=== PATIENT | female | born 1985 | race Caucasian/White ===

== ENCOUNTER → 2017-04-06 | Outpatient (CLI) | payer BC ==
[~2017-04-06] MED LIST: *morphine SULFATE 8 MG/ML PERIprocedure ONLY ONE; CETI10 PO; DO NOT ADM ANY ANTICOAGULANT DRUGS PRN; ESCI10TA PO; FAMO20TA2 PO; GABA100C4 PO; LORA1TAB12 PO; MORP1TAB24 PO; PRAD150C PO; PROPOFOL 200 MG/20 ML AMP IV ONE; ROBA500T PO
--- NOTE | 2017-04-06 12:49 | PD.PROCEDR ---
GI Procedure REFERRING PHYSICIAN Dr. Damon PROCEDURE PERFORMED EGD followed by a colonoscopy INDICATION FOR PROCEDURE Aissatou aphagia, gastroparesis, hematochezia PROCEDURE: The procedure, risks and benefits were discussed with Ms. Montano and informed consent was obtained. Anesthesia sedated her with Diprivan. She was placed in the left lateral decubitus position. EGD: The Pentax videoscope was introduced through the oropharynx and advanced to the second portion of the duodenum under direct visualization. Retroflexion was performed in the stomach. FINDINGS: Esophagus this was normal Stomach this was normal Duodenum this was normal Colonoscopy: The Pentax videoscope was introduced through the rectum and advanced to cecum where the ileocecal valve and appendiceal orifice were identified. Retroflexion was performed in the rectum. Colonic prep was good FINDINGS: Colonic withdrawal time greater than 6 minutes as the scope was slowly withdrawn colonic mucosa was carefully inspected this was noted to be unremarkable and within normal limits all the way through so as retroflexion and rectal examination ESTIMATED BLOOD LOSS: None SPECIMENS REMOVED: None COMPLICATIONS: None IMPRESSION: Normal EGD Normal colonoscopy PLAN: High-fiber diet Supportive care Clay Rai MD Apr 06, 2017 12:49
[2017-04-06 13:10] VITALS: BP 120/70; PULSE 58; RESP 14; TEMP 98.7; O2SAT 100
== END ==
LOC: HEND 09:02
PROVIDERS: ATTEND Internal Medicine Gastroenterology
DX: R13.0 Aphagia (principal); K31.84 Gastroparesis; K92.1 Melena
CPT/HCPCS: J2270

== ENCOUNTER 2017-05-03 12:22 | Emergency (ER) | payer BC ==
[~2017-05-03 12:22] MED LIST changes: -*morphine SULFATE 8 MG/ML PERIprocedure ONLY ONE; +BETH10 PO; +CIPR-9 PO; +DIFL100T PO; -DO NOT ADM ANY ANTICOAGULANT DRUGS PRN; -ESCI10TA PO; +ESCI20TA PO; -FAMO20TA2 PO; -GABA100C4 PO; +LYRI50CA PO; +PANT40TA3 PO; -PROPOFOL 200 MG/20 ML AMP IV ONE; +SENN1TAB PO; +SUCR1S PO
[2017-05-03] MEDS ORDERED: SODIUM CHLOR 0.9% 1000 ML INJ 1,000 ML IV ONE (13:10)
[2017-05-03] MEDS ORDERED: SODIUM CHLORIDE 0.9% FLUSH 10 ML FLUSH IVF PRN (13:15)
[2017-05-03 13:17] VITALS: BP 123/83; PULSE 66; RESP 17; TEMP 98; O2SAT 98
--- NOTE | 2017-05-03 13:41 | PD ---
HPI Chief Complaint: Neuro Symptoms/ Deficits Time Seen by Provider: 13:08 Travel History International Travel<30 days: No Contact w/Intl Traveler<30days: No Traveled to known affect area: No History of Present Illness HPI 32-year-old female came to the emergency room for increased somnolence. Patient says that she has been falling asleep in the middle of sentences while talking to somebody during the day. At night she has been waking up and mumbling things that do not make sense as per her boyfriend. This has been going on for past 3-4 nights. Currently when patient is talking to me she is answering questions appropriately but she talks with a slur. It almost seems like she has been on pain medications. Upon asking patient had to pull the medication box out of her purse which is a rather large 1 and she looked at her medications and told me she is on morphine, Robaxin, lorazepam and Lyrica. Out of all this the Lyrica has been started 2 weeks ago. Patient has history of chronic pain and hence on all these medications. Vital signs were stable. [facility] Past Medical History Narrative Medical List of her past medical, surgical, social and family history was reviewed from the nursing note. Arthritis: Yes (LEFT KNEE) Asthma: No Autoimmune Disease: No Blood Disorders: Yes (FACTOR 5 LEIDEN) Anxiety: Yes Depression: No Heart Rhythm Problems: No Cancer: Yes (CERVICAL CANCER WITH LEAP PROCEDURE) Cardiovascular Problems: Yes (RECURRENT BILATERAL LOWER EXT DVT) High Cholesterol: No Chemotherapy: No Chest Pain: No Congestive Heart Failure: No COPD: No Cerebrovascular Accident: No Diabetes: No Endocrine: No GERD: Yes Genitourinary: Yes (HX PERFORATED BLADDER) Hiatal Hernia: No Immune Disorder: No Kidney Stones: No Musculoskeletal: Yes (LEFT SIDE WEAKNESS) Neurologic: Yes (spinal verterbral column compression) Psychiatric: Yes Reproductive: No Respiratory: Yes Immunizations Current: Yes Migraines: No Radiation Therapy: No Renal Failure: No Seizures: No Sickle Cell Disease: No Sleep Apnea: Yes (POSSIBLE, NOT DIAGNOSED) Thyroid Disease: No Ulcer: No Dilation and Curettage (D&C): Yes Past Surgical History Abdominal Surgery: Yes (LAPAROSCOPY) AICD: No Arteriovenous Shunt: No Cardiac Surgery: No Ear Surgery: No Endocrine Surgery: No Eye Surgery: No Genitourinary Surgery: Yes (REMOVAL OF PLACENTA FROM BLADDER) Gynecologic Surgery: Yes (PLACENTA REMOVAL ) Insulin Pump: No Joint Replacement: No Oral Surgery: No Pacemaker: No Thoracic Surgery: No Other Surgery: Yes (LEAP/LAPAROSCOPY/HYSTEROSCOPY/LUMBAR PUNCTURE) Social History Alcohol Use: No Tobacco Use: No Substance Use: No Allergies-Medications (Allergen,Severity, Reaction): Coded Allergies: doxycycline (Unverified Allergy, Unknown, 05/03/17) Comments List of her allergies reviewed from the nursing note. Reported Meds & Prescriptions Reported Meds & Active Scripts Active Urecholine (Bethanechol Chloride) 10 Mg Tab 10 Mg PO Q8HR Senna Plus 8.6-50 mg (Sennosides-Docusate Sodium) 1 Tab Tab 1 Tab PO BID Sucralfate Liq (Sucralfate) 1 Gm/10 Ml Gabrielle 1 Gm PO ACHS 30 Days Pantoprazole (Pantoprazole Sodium) 40 Mg Tab 40 Mg PO DAILY Escitalopram (Escitalopram Oxalate) 20 Mg Tab 20 Mg PO DAILY Morphine ER (Morphine Sulfate) 15 Mg Tab 15 Mg PO Q4HR PRN Robaxin (Methocarbamol) 500 Mg Tab 500 Mg PO QID PRN Lorazepam 1 Mg Tab 1 Mg PO Q12HR PRN Pradaxa (Dabigatran) 150 Mg Cap 150 Mg PO BID Cetirizine (Cetirizine HCl) 10 Mg Tab 10 Mg PO DAILY Reported Lyrica (Pregabalin) 50 Mg Cap 50 Mg PO BID Narrative Medication List of her home medications reviewed from the nursing note. Review of Systems Except as stated in HPI: all other systems reviewed are Neg Physical Exam Narrative GENERAL: Drowsy, no obvious distress SKIN: Focused skin assessment warm/dry. HEAD: Atraumatic. Normocephalic. EYES: Pupils equal and round. No scleral icterus. No injection or drainage. ENT: No nasal bleeding or discharge. Mucous membranes pink and moist. NECK: Trachea midline. No JVD. CARDIOVASCULAR: Regular rate and rhythm. No murmur appreciated. RESPIRATORY: No accessory muscle use. Clear to auscultation. Breath sounds equal bilaterally. GASTROINTESTINAL: Abdomen soft, non-tender, nondistended. Hepatic and splenic margins not palpable. MUSCULOSKELETAL: No obvious deformities. No clubbing. No cyanosis. No edema. NEUROLOGICAL: Awake and alert. No obvious cranial nerve deficits. Motor grossly within normal limits. Slightly heavy/slurred speech. PSYCHIATRIC: Appropriate mood and affect; insight and judgment normal. Data Data Last Documented VS Vital Signs Date Time Temp Pulse Resp B/P (MAP) Pulse Ox O2 Delivery O2 Flow Rate FiO2 05/03/17 16:06 98 05/03/17 15:00 57 16 Room Air 05/03/17 13:17 98.0 Orders Orders Complete Blood Count With Diff (05/03/17 13:10) Ct Brain W/O Iv Contrast(Rout) (05/03/17 13:10) Ecg Monitoring (05/03/17 13:10) Iv Access Insert/Monitor (05/03/17 13:10) Oximetry (05/03/17 13:10) Sodium Chloride 0.9% Flush (Ns Flush) (05/03/17 13:15) Sodium Chlor 0.9% 1000 Ml Inj (Ns 1000 M (05/03/17 13:10) Urinalysis - C+S If Indicated (05/03/17 13:10) Complete Blood Count With Diff (05/03/17 14:12) Comprehensive Metabolic Panel (05/03/17 14:12) Labs Laboratory Tests Test 05/03/17 13:05 05/03/17 13:30 05/03/17 14:10 White Blood Count TH/MM3 6.9 TH/MM3 Red Blood Count MIL/MM3 4.78 MIL/MM3 Hemoglobin GM/DL 14.4 GM/DL Hematocrit % 42.6 % Mean Corpuscular Volume FL 89.0 FL Mean Corpuscular Hemoglobin PG 30.1 PG Mean Corpuscular Hemoglobin Concent % 33.8 % Red Cell Distribution Width % 12.4 % Platelet Count TH/MM3 184 TH/MM3 Mean Platelet Volume FL 11.2 FL Neutrophils (%) (Auto) % 54.4 % Lymphocytes (%) (Auto) % 38.1 % Monocytes (%) (Auto) % 5.7 % Eosinophils (%) (Auto) % 1.5 % Basophils (%) (Auto) % 0.3 % Neutrophils # (Auto) TH/MM3 3.8 TH/MM3 Lymphocytes # (Auto) TH/MM3 2.6 TH/MM3 Monocytes # (Auto) TH/MM3 0.4 TH/MM3 Eosinophils # (Auto) TH/MM3 0.1 TH/MM3 Basophils # (Auto) TH/MM3 0.0 TH/MM3 CBC Comment AUTO DIFF Differential Comment AUTO DIFF CONFIRMED Platelet Estimate NORMAL Platelet Morphology Comment ENLARGED Blood Urea Nitrogen 8 MG/DL Creatinine 0.74 MG/DL Random Glucose 76 MG/DL Total Protein 6.8 GM/DL Albumin 3.2 GM/DL Calcium Level 8.7 MG/DL Alkaline Phosphatase 78 U/L Aspartate Amino Transf (AST/SGOT) 21 U/L Alanine Aminotransferase (ALT/SGPT) 30 U/L Total Bilirubin 0.3 MG/DL Sodium Level 137 MEQ/L Potassium Level 3.7 MEQ/L Chloride Level 102 MEQ/L Carbon Dioxide Level 30.2 MEQ/L Anion Gap 5 MEQ/L Estimat Glomerular Filtration Rate 92 ML/MIN Urine Color YELLOW Urine Turbidity CLEAR Urine pH 5.5 Urine Specific [place] 1.011 Urine Protein NEG mg/dL Urine Glucose (UA) NEG mg/dL Urine Ketones NEG mg/dL Urine Occult Blood NEG Urine Nitrite NEG Urine Bilirubin NEG Urine Urobilinogen LESS THAN 2.0 MG/DL Urine Leukocyte Esterase NEG Urine WBC LESS THAN 1 /hpf Urine Squamous Epithelial Cells 2 /hpf Microscopic Urinalysis Comment CULT NOT INDICATED MDM Medical Decision Making Medical Screen Exam Complete: Yes Emergency Medical Condition: Yes Medical Record Reviewed: Yes Differential Diagnosis Overmedication with narcotics, metabolic encephalopathy, dehydration Narrative Course 1:40 PM awaiting for the blood test results and the CT scan of her head to be done and resulted. I've told the patient that in my opinion her symptoms are probably from being overmedicated with all these pain pills that are causing her to be groggy. Patient does not seem satisfied her happy with that explanation. I've ordered labs and CT and waiting for them to come back. If they're within normal limit I will discharge her home and her physician will have to readjust the medications. 3:05 PM blood test results are back and the CT scan and they're all within normal limit. Patient will be discharged home. Procedures EKG Prior to Arrival: No Diagnosis Primary Impression: medication related drowsiness Additional Impressions: overmedication Excessive daytime sleepiness Referrals: Primary Care Physician Additional Instructions: Please return to the ER if the condition worsens or any other new concerns. Otherwise follow-up with your primary care. Your conditions need to be addressed because her sleepiness is most probably from the additive effect of all these medications. Disposition: 01 DISCHARGE HOME Condition: Stable Cristi Palacios MD May 03, 2017 13:41
[2017-05-03 14:00] VITALS: BP 127/80; PULSE 59; RESP 16; O2SAT 99
[2017-05-03 14:23] LABS: AUTOMATED NEUTROPHIL # 3.8 TH/MM3 (1.8-7.7); BASOPHIL % 0.3 % (0.0-2.0); EOSINOPHIL # 0.1 TH/MM3 (0-0.4); EOSINOPHIL % 1.5 % (0.0-4.0); HEMATOCRIT 42.6 % (35.0-46.0); LYMPH % 38.1 % (9.0-44.0); LYMPHOCYTE # 2.6 TH/MM3 (1.0-4.8); MEAN CORPUSCULAR HEMOGLOBIN 30.1 PG (27.0-34.0); MEAN CORPUSCULAR HGB CONC 33.8 % (32.0-36.0); MONO % 5.7 % (0.0-8.0); NEUT % 54.4 % (16.0-70.0); PLATELET COUNT 184 TH/MM3 (150-450); RED BLOOD COUNT 4.78 MIL/MM3 (4.00-5.30); RED CELL DISTRIBUTION WIDTH 12.4 % (11.6-17.2); WHITE BLOOD COUNT 6.9 TH/MM3 (4.0-11.0)
[2017-05-03 14:28] LABS: HEMO FLAGS AUTO DIFF
[2017-05-03 14:34] LABS: BLOOD, URINE NEG (NEG); COMMENT (UR) CULT NOT INDICATED; CULTURE IF INDICATED CULT NOT INDICATED; GLUCOSE,URINE NEG (NEG); KETONE, URINE NEG (NEG); NITRITE,URINE NEG (NEG); PH, URINE 5.5 (5.0-8.5); SQUAMOUS EPITHELIAL CELL URINE 2 /hpf (0-5); URINE COLOR YELLOW (YELLW/STRAW)
[2017-05-03 14:39] LABS: ANION GAP 5 MEQ/L (5-15); AST (GOT) 21 U/L (15-37); BICARBONATE 30.2 MEQ/L (21.0-32.0); BLOOD UREA NITROGEN 8 MG/DL (7-18); CHLORIDE 102 MEQ/L (98-107); GLOMERULAR FILTRATION RATE 92 ML/MIN (>89); POTASSIUM 3.7 MEQ/L (3.5-5.1); SODIUM (NA) 137 MEQ/L (136-145)
[2017-05-03 14:40] LABS: ALT (GPT) 30 U/L (10-53)
[2017-05-03 14:42] LABS: ALKALINE PHOSPHATASE 78 U/L (45-117); TOTAL BILIRUBIN ADULT 0.3 MG/DL (0.2-1.0)
--- NOTE | 2017-05-03 14:55 | RADRPT ---
EXAM DATE/TIME: 05/03/2017 14:32 [facility] COMPARISON: MRI BRAIN W & W/O CONTRAST, March 20, 2017, 0:30. CT BRAIN W/O CONTRAST, March 19, 2017, 23:32. INDICATIONS : Headaches with sleepness. RADIATION DOSE: 56.39 CTDIvol (mGy) MEDICAL HISTORY : Deep venous thrombosis. Epidural hemorage, Cervical cancer. SURGICAL HISTORY : None. ENCOUNTER: Initial ACUITY: 3 days PAIN SCALE: 1/10 LOCATION: Bilateral cranial TECHNIQUE: Multiple contiguous axial images were obtained of the head. Using automated exposure control and adj ustment of the mA and/or kV according to patient size, radiation dose was kept as low as reasonably a chievable to obtain optimal diagnostic quality images. DICOM format image data is available electro nically for review and comparison. FINDINGS: There is no evidence for intracranial hemorrhage, mass effect, mass lesions, edema, or extra-axial fl uid collections. The visualized bony structures appear intact. The ventricles are normal size for t he patient's age. There are no signs of acute infarction for technique. CONCLUSION: Unremarkable study. Elizabet Johnson MD on May 03, 2017 at 14:51 Board Certified Radiologist. This report was verified electronically.
[2017-05-03 15:00] VITALS: BP 127/72; PULSE 57; RESP 16; O2SAT 98
[2017-05-03 15:40] LABS: PLATELET ESTIMATE SMEAR NORMAL (NORMAL); PLATELET MORPHOLOGY ENLARGED (NORMAL); SCAN/DIFF AUTO DIFF CONFIRMED
== END 2017-05-03 16:15 | disposition home or self-care (01) ==
LOC: NEPC 12:22
DX: R40.0 Somnolence (principal)
CPT/HCPCS: 70450; 80053; 81001; 85025; 99284; J7030